=== PATIENT | female | born 1950 | race Caucasian/White ===

== ENCOUNTER 2022-11-15 09:20 | Emergency (ER) | payer MEDICARE, OTHER ==
[~2022-11-15] VITALS: Ht 149.9 cm; Wt 56.7 kg
[2022-11-15 09:46] LABS: BASOPHILS % (AUTO) 0.7 % (0.0-5.0); EOSINOPHILS % (AUTO) 5.3 % (0.0-8.0); HEMATOCRIT 42.4 % (36-48); LYMPHOCYTES % (AUTO) 28.1 % (21.0-51.0); MEAN CORPUSCULAR HEMOGLOBIN 30.5 pg (27.0-33.0); MEAN CORPUSCULAR VOLUME 92.4 fL (79-99); MONOCYTES % (AUTO) 14.9 % (3.0-13.0); NEUTROPHILS % (AUTO) 50.8 % (40.0-77.0); PLATELET COUNT (AUTO) 148 K/uL (130-400); RED BLOOD CELL COUNT(AUTO) 4.59 MIL/uL (4.00-5.50); WHITE BLOOD COUNT (AUTO) 4.5 K/uL (4.8-10.8)
[2022-11-15 09:50] LABS: CREATININE 0.8 mg/dL (0.5-1.5); POTASSIUM 4.4 mmol/L (3.5-5.1)
[2022-11-15 09:55] LABS: ALBUMIN 3.4 g/dL (3.5-5.0); TOTAL PROTEIN, SERUM 6.7 g/dL (6.0-8.3)
[2022-11-15] MEDS ORDERED: DEXAMETHASONE SOD PHOSPHATE 4 MG/ML 1ML VIAL IM STA (10:34)
[2022-11-15] MEDS ORDERED: ALBUTEROL 0.083% 2.5 MG/3 ML INH IH STA (10:34)
[2022-11-15] MEDS ORDERED: LORA10TA7 PO (10:39)
[2022-11-15] MEDS ORDERED: AMOX500C2 PO (10:39)
[2022-11-15] MEDS ORDERED: FLUT16H NASAL (10:39)
[2022-11-15] MEDS ORDERED: GUAIFENESIN-CODEINE 5 ML SYRUP PO ONE (11:00)
[2022-11-15 11:06] VITALS: BP 137/65
== END 2022-11-15 11:10 | disposition home or self-care (01) ==
LOC: EDH 09:20
DX: J32.9 Chronic sinusitis, unspecified (principal); I10 Essential (primary) hypertension; Z20.822 Contact with and (suspected) exposure to COVID-19
CPT/HCPCS: 99284; 80053; 85025; 87804 ×2; 36415; 87635; 71045; 96372; 94640; J1100; C9803